=== PATIENT | male | born 1950 | race Caucasian/White ===

== ENCOUNTER 2016-08-30 20:04 | Emergency (ER) | payer OTHER ==
[2012-07-23 17:31] VITALS: BMI 35.0
[2016-08-30 20:39] LABS: BASOPHILS 0.3 % (0.0-2.0); EOSINOPHILS 0.9 % (0-7); HEMATOCRIT 55.9 % (42.0-54.0); HEMOGLOBIN 18.9 g/dL (13.5-17.5); IMMATURE GRANULOCYTES 0.7 % (0-5); LYMPHOCYTES 16.6 % (15-50); MCH 33.9 pg (26.0-34.0); MCHC 33.8 g/dL (31.0-37.0); MCV 100.4 fL (80.0-100.0); MEAN PLATELET VOLUME 9.2 fL (7.4-10.4); MONOCYTES 16.7 % (2-11); NEUTROPHILS 64.8 % (40-80); RBC 5.57 10x6/uL (4.20-6.10); RDW 13.9 % (11.5-14.5); WBC 7.1 10x3/uL (4.8-10.8)
[2016-08-30 20:40] LABS: PLATELET COUNT 119 10x3/uL (130-400)
[2016-08-30 21:05] LABS: INR 1.1 (0.85-1.17); PROTIME 14.1 SECONDS (11.6-15.0)
[2016-08-30 21:07] LABS: ALKALINE PHOSPHATASE 73 U/L (46-116); ALT (SGPT) 58 U/L (10-68); BILIRUBIN - TOTAL 0.56 mg/dL (0.2-1.3); CALC OSMOLALITY 284 mosm/kg (275-300); CHLORIDE - SERUM 101 mmol/L (98-107); GLUCOSE 83 mg/dL (74-106); POTASSIUM - SERUM 4.2 mmol/L (3.5-5.1); PROTEIN - SERUM 5.9 g/dL (6.4-8.2); SODIUM 142 mmol/L (136-145); UREA NITROGEN 20 mg/dL (7-18); eGFR NON AFRICAN AMERICAN 79 mL/min (90-120)
[2016-08-30 21:14] LABS: CKMB 2.2 U/L (0.0-3.6); CREATINE KINASE 41 UL (21-232); PRO BNP 1744 pg/mL (0-125); TROPONIN-I 0.032 ng/mL (0.000-0.060)
[2016-08-30 21:35] LABS: AMYLASE - SERUM 31 U/L (25-115); LIPASE 103 U/L (73-393)
== END 2016-08-31 01:18 | disposition short-term general hospital (02) ==
LOC: D.ER 20:04
PROVIDERS: Family Medicine; Nurse Practitioner Family
DX: L03.90 Cellulitis, unspecified (principal); I87.2 Venous insufficiency (chronic) (peripheral); J44.9 Chronic obstructive pulmonary disease, unspecified; I10 Essential (primary) hypertension; I50.9 Heart failure, unspecified

== ENCOUNTER 2017-12-28 17:58 | Emergency (ER) | payer OTHER ==
[2012-07-23 17:31] VITALS: BMI 35.0
[2017-12-28 18:29] LABS: BASOPHILS 0.4 % (0-2); EOSINOPHILS 0.6 % (0-7); HEMATOCRIT 64.6 % (42.0-54.0); HEMOGLOBIN 20.4 g/dL (13.5-17.5); LYMPHOCYTES 20.2 % (15-50); MCH 30.2 pg (26.0-34.0); MCHC 31.6 g/dL (31.0-37.0); MCV 95.6 fL (80.0-100.0); MEAN PLATELET VOLUME 9.7 fL (7.4-10.4); MONOCYTES 18.1 % (2-11); NEUTROPHILS 57.7 % (40-80); RDW 17.7 % (11.5-14.5); WBC 5.3 10x3/uL (4.8-10.8)
[2017-12-28 18:30] LABS: PLATELET COUNT 217 10x3/uL (130-400); RBC 6.76 10x6/uL (4.20-6.10)
[2017-12-28 18:43] LABS: ALBUMIN 3.3 g/dL (3.4-5.0); ALKALINE PHOSPHATASE 53 U/L (46-116); ALT (SGPT) 21 U/L (10-68); BILIRUBIN - TOTAL 0.49 mg/dL (0.2-1.3); CALC OSMOLALITY 294 mosm/kg (275-300); CALCIUM 9.2 mg/dL (8.5-10.1); CARBON DIOXIDE 32.7 mmol/L (21.0-32.0); CHLORIDE - SERUM 98 mmol/L (98-107); GLUCOSE 107 mg/dL (74-106); POTASSIUM - SERUM 4.5 mmol/L (3.5-5.1); PROTEIN - SERUM 6.6 g/dL (6.4-8.2); SODIUM 140 mmol/L (136-145); UREA NITROGEN 57 mg/dL (7-18); eGFR NON AFRICAN AMERICAN 35 mL/min (90-120)
[2017-12-28 18:53] LABS: CHOL - HDL RATIO 3.6 ratio (2.3-4.9); CHOLESTEROL, TOTAL 101 mg/dL (0-200); CKMB 0.7 U/L (0.0-3.6); CREATINE KINASE 29 UL (21-232); HDL CHOLESTEROL 28 mg/dL (32-96); LDL CHOLESTEROL 48 mg/dL (0-100); LDL-HDL RATIO 1.7 ratio (1.5-3.5); TRIGLYCERIDE 129 mg/dL (30-200); TROPONIN-I 0.018 ng/mL (0.000-0.060)
[2017-12-28 19:18] LABS: INR 1.23 (0.85-1.17); PROTIME 15.1 SECONDS (11.6-15.0)
[2017-12-28 20:16] LABS: AMYLASE - SERUM 31 U/L (25-115); LIPASE 115 U/L (73-393)
== END 2017-12-28 23:09 | disposition short-term general hospital (02) ==
LOC: D.ER 17:58
PROVIDERS: Emergency Medicine; Nurse Practitioner Family
DX: R07.89 Other chest pain (principal); J96.20 Acute and chronic respiratory failure, unspecified whether with hypoxia or hypercapnia; E86.0 Dehydration; F17.200 Nicotine dependence, unspecified, uncomplicated; I50.9 Heart failure, unspecified; J44.9 Chronic obstructive pulmonary disease, unspecified; I10 Essential (primary) hypertension; I45.10 Unspecified right bundle-branch block

== ENCOUNTER 2020-12-22 14:19 | Emergency (ER) | payer OTHER ==
[~2020-12-22] VITALS: Ht 190.5 cm; Wt 127.3 kg
[2020-12-22 14:33] VITALS: Ht 190.5 cm; Wt 127.3 kg
[2020-12-22] MEDS ORDERED: LISINOPRIL10 MG PO (14:34)
[2020-12-22] MEDS ORDERED: COREG12.5 MG PO (14:34)
[2020-12-22] MEDS ORDERED: PROCARDIA XL60 MG PO (14:35)
[2020-12-22] MEDS ORDERED: METFORMIN HCL500 M1 PO (14:35)
[2020-12-22 16:00] LABS: BASOPHILS 0.3 % (0-2); HEMATOCRIT 47.3 % (42.0-54.0); HEMOGLOBIN 16.3 g/dL (13.5-17.5); IMMATURE GRANULOCYTES 1.1 % (0-5); LYMPHOCYTES 13.8 % (15-50); MCH 31.8 pg (26.0-34.0); MCHC 34.5 g/dL (31.0-37.0); MCV 92.4 fL (80.0-100.0); MEAN PLATELET VOLUME 9.4 fL (7.4-10.4); MONOCYTES 11.9 % (2-11); NEUTROPHIL ABS# 5.56 10x3/uL (1.78-5.38); NEUTROPHILS 69.9 % (40-80); RBC 5.12 10x6/uL (4.20-6.10); RDW 13.9 % (11.5-14.5)
[2020-12-22 16:01] LABS: PLATELET COUNT 160 10x3/uL (130-400)
[2020-12-22 16:05] LABS: APTT 32.8 SECONDS (22.8-39.4); INR 1.1 (0.85-1.17); PROTIME 13.2 SECONDS (11.6-15.0)
[2020-12-22 16:10] LABS: CALC OSMOLALITY 274 mosm/kg (275-300); CALCIUM 9.2 mg/dL (8.5-10.1); CARBON DIOXIDE 27.8 mmol/L (21.0-32.0); CHLORIDE - SERUM 100 mmol/L (98-107); CREATININE - SERUM 1.3 mg/dL (0.6-1.3); POTASSIUM - SERUM 4.1 mmol/L (3.5-5.1); SODIUM 135 mmol/L (136-145); UREA NITROGEN 16 mg/dL (7-18); eGFR NON AFRICAN AMERICAN 58 mL/min (90-120)
[2020-12-22 16:14] LABS: GLUCOSE 166 mg/dL (74-106)
[2020-12-22 16:25] LABS: ALBUMIN 3.6 g/dL (3.4-5.0); ALKALINE PHOSPHATASE 79 U/L (30-120); ALT (SGPT) 24 U/L (10-68); BILIRUBIN - TOTAL 0.58 mg/dL (0.2-1.3); CKMB 1.5 U/L (0.0-3.6); CREATINE KINASE 48 UL (21-232); PROTEIN - SERUM 7.3 g/dL (6.4-8.2); TROPONIN-I < 0.017 ng/mL (0.000-0.060)
[2020-12-23 03:06] VITALS: BP 106/61
== END 2020-12-23 03:35 | disposition other institution (70) ==
LOC: D.ER 14:19
PROVIDERS: Family Medicine
DX: L03.116 Cellulitis of left lower limb (principal); L03.115 Cellulitis of right lower limb; E11.9 Type 2 diabetes mellitus without complications; I11.0 Hypertensive heart disease with heart failure; I50.9 Heart failure, unspecified; Z79.84 Long term (current) use of oral hypoglycemic drugs